=== PATIENT | male | born 1985 | race Two or more races ===

== ENCOUNTER 2021-05-19 16:02 | Emergency (ER) | payer OTHER ==
[2021-05-19] MEDS ORDERED: IBU600 MG PO (17:11)
[2021-05-19] MEDS ORDERED: NORCO 5-325 TA1 EACH PO (17:30)
== END 2021-05-19 17:59 | disposition home or self-care (01) ==
LOC: FER 16:02
DX: S43.005A Unspecified dislocation of left shoulder joint, initial encounter (principal); W19.XXXA Unspecified fall, initial encounter; Y92.71 Barn as the place of occurrence of the external cause
CPT/HCPCS: 73020; 96374; J1170